=== PATIENT | female | born 1995 | race Caucasian/White ===

== ENCOUNTER → 2017-02-18 | Outpatient (CLI) | payer BC ==
[2017-02-18 17:37] LABS: CH 29.7; CHCM 34.8; HCT 32.9 % (34.0-46.0); HDW 2.66; HGB 11.1 gm/dL (11.4-16.0); MCH 28.9 pg (25.0-35.0); MCHC 33.8 g/dL (31.0-37.0); MCV 85.7 fL (80.0-100.0); Mean Platelet Volume 8.4; RBC 3.84 m/uL (3.80-5.40); RDW 13.7 % (11.5-15.5); WBC 6.4 k/uL (3.8-10.6)
[2017-02-18 17:42] LABS: Glucose 101 mg/dL (74-99); Non-African American GFR(MDRD) >60 (>60 ml/min/1.73 sqM)
[2017-02-18 18:31] LABS: Hepatitis B Surface Ag Index 0.04
[2017-02-19 01:10] LABS: Treponemal Ab Non-Reactive (Non-Reactive)
[2017-02-20 03:33] LABS: Toxoplasma Antibody (IgG) <3.0 IU/mL (<7.2)
== END | disposition home or self-care (01) ==
LOC: LABWHC1 17:01
PROVIDERS: ATTEND Obstetrics & Gynecology
DX: Z34.82 Encounter for supervision of other normal pregnancy, second trimester (principal)
CPT/HCPCS: 36415; 82565; 82947; 85027; 86762; 86777; 86778; 86780; 86850; 86900; 86901; 87340; 87390

== ENCOUNTER 2017-07-22 08:58 | Emergency (ER) | payer BC ==
[2017-07-22 09:11] VITALS: BP 116/84; PULSE 86; RESP 18; TEMP 98.3
--- NOTE | 2017-07-22 09:57 | ED ---
General Adult HPI - General Chief complaint: Eye Problems Stated complaint: Poss.pink eye/36 wks Time Seen by Provider: 07/22/17 09:29 Source: patient, RN notes reviewed Mode of arrival: ambulatory Limitations: no limitations - History of Present Illness Initial comments: 22-year-old female presents to the emergency department with a chief complaint of bilateral light sensitivity to ice. She states if she looks like she has pain. She states her doctor and the pain is gone. She states that she has some blurred vision with this. She states that she had some pinkeye over week and half ago but that completely cleared up and then today she woke up with these symptoms. She denies any fever chills any cough cold. She states she is not currently having any other symptoms at this time. She states she is also 36 weeks having some lower abdominal cramping. Patient denies any recent fever, chills, shortness of breath, chest pain, back pain, abdominal pain , nausea vomiting, numbness or tingling, dysuria or hematuria, constipation or diarrhea, headaches.or any other current symptoms. - Related Data Previous Rx's Medication Instructions Recorded prednisoLONE ACETATE 1% OPHTH 1 drops BOTH EYES Q4HR 2 Days ml 07/22/17 [Pred Forte 1%] Allergies Allergy/AdvReac Type Severity Reaction Status Date / Time No Known Allergies Allergy Verified 07/22/17 09:28 Review of Systems ROS Statement: Those systems with pertinent positive or pertinent negative responses have been documented in the HPI. ROS Other: All systems not noted in ROS Statement are negative. Past Medical History Past Medical History: No Reported History Additional Past Medical History / Comment(s): Obstetric history: First two pregnancies were spontaneous abortions. This is her third . She has had care with [facility] since 10 weeks gestation. A+, abs neg, Rub Imm, RPR NR, Hep B neg, HIV NR. normal 1hr GTT. GBS neg History of Any Multi-Drug Resistant Organisms: None Reported Past Surgical History: No Surgical Hx Reported Past Anesthesia/Blood Transfusion Reactions: Unable to Obtain Past Psychological History: Bipolar, Depression Smoking Status: Former smoker Past Alcohol Use History: None Reported Past Drug Use History: None Reported General Exam Limitations: no limitations General appearance: alert, in no apparent distress Head exam: Present: atraumatic, normocephalic, normal inspection Eye exam: Present: normal appearance, PERRL, EOMI, other (Patient has pain with pupil dilation and constriction. No pain in a dark room. Logan lamp examination shows no corneal uptake.). Absent: scleral icterus, conjunctival injection, periorbital swelling ENT exam: Present: normal exam, mucous membranes moist Neck exam: Present: normal inspection. Absent: tenderness, meningismus, lymphadenopathy Respiratory exam: Present: normal lung sounds bilaterally. Absent: respiratory distress, wheezes, rales, rhonchi, stridor Cardiovascular Exam: Present: regular rate, normal rhythm, normal heart sounds. Absent: systolic murmur, diastolic murmur, rubs, gallop, clicks Neurological exam: Present: alert, oriented X3 Psychiatric exam: Present: normal affect, normal mood Skin exam: Present: warm, dry, intact, normal color. Absent: rash Course Vital Signs 07/22/17 09:06 Temperature 98.3 F Pulse Rate 86 Respiratory 18 Rate Blood Pressure 116/84 O2 Sat by Pulse 98 Oximetry Medical Decision Making - Medical Decision Making 22-year-old female presents emergency department with what appears to be a iritis. This tenderness with patient on steroid drops to give her prescription. We will then sent her to mother baby due to her her cramping at 36 weeks . We discussed follow-up with the mash tub cooker operator and she is given their information. We discussed return parameters all questions. Patient states she understood and she is here this plan. She'll be discharged. Disposition Clinical Impression: Iritis of both eyes Disposition: HOME SELF-CARE Condition: Stable Instructions: Iritis (ED) Additional Instructions: Please use medication as discussed. Please follow up with family doctor if symptoms have not improved over the next two days. Please return to the emergency room if your symptoms increase or worsen or for any other concerns. If symptoms have not improved in 2 days he needs to see the eye doctor as discussed. Prescriptions: prednisoLONE ACETATE 1% OPHTH [Pred Forte 1%] 1 drops BOTH EYES Q4HR 2 Days ml Referrals: Edith Castanon DO [Primary Care Provider] - 1-2 days Kraig Britt MD [STAFF PHYSICIAN] - 1-2 days Time of Disposition: 09:56
== END 2017-07-22 10:07 | disposition home or self-care (01) ==
LOC: EC 08:58
DX: O99.89 Other specified diseases and conditions complicating pregnancy, childbirth and the puerperium (principal); H20.9 Unspecified iridocyclitis; R10.30 Lower abdominal pain, unspecified; Z87.891 Personal history of nicotine dependence; Z3A.36 36 weeks gestation of pregnancy
CPT/HCPCS: 59025; 99213; 99283

== ENCOUNTER 2017-07-22 10:15 | Outpatient (CLI) | payer BC ==
[2017-07-22 11:19] VITALS: BP 108/59; PULSE 75; RESP 15; TEMP 97.5
--- NOTE | 2017-07-23 19:34 | P.MSEPDOC ---
Presenting Problems - Arrival Data Date of Arrival on Unit: 07/22/17 Time of Arrival on Unit: 10:15 Mode of Transport: Ambulatory - Complaint OB-Reason for Admission/Chief Complaint: Pain Medical History - Information : 2 Para: 1 Term: 1 : 0 Abortions: Spontaneous or Elective: 0 Number of Living Children: 1 - Gestational Age Gestational Age by BATOOL (wks/days): 36 Weeks and 1 Days Review of Systems - Review of Systems Constitutional: No problems Breast: No problems ENT: Cough Cardiovascular: No problems Respiratory: No problems Gastrointestinal: No problems Genitourinary: No problems Musculoskeletal: No problems Neurological: No problems Skin: No problems Comment: pt has a dry cough x 4-5 days. pt diagnosed with pink eye in Er this and given script for drops Vital Signs - Temperature Temperature: 97.5 F Temperature Source: Oral - Pulse Brachial Pulse Rate: 75 Pulse Assessment Method: Automatic Cuff - Respirations Respiratory Rate: 15 Oxygen Delivery Method: Room Air O2 Sat by Pulse Oximetry: 100 - Blood Pressure Right Arm Sitting Blood Pressure: 108/59 Blood Pressure Mean: 75 Blood Pressure Source: Automatic Cuff Medical Screen Scoring (Pre) - Cervical Exam Dilation: Exam Deferred Effacement: Exam Deferred Membranes: Intact - Uterine Contractions Frequency: N/A Duration: N/A Intensity: N/A - Maternal Vital Signs Maternal Temperature: N/A Maternal Blood Pressure: N/A Signs of Preeclampsia: N/A Maternal Respirations: N/A - Pain Assessment Pain Location and Character: Abdomen Pain Scale Used: Numeric (1 - 10) Pain Intensity: 4 Pain Description: *Acute, Cramping Pain Frequency: Intermittent Pain Duration Units: Hours Pain Behavior: Vocalization Pain Aggravating Factors: Activity Pharmacological Interventions: PRN Medication Non-Pharmacological Interventions: Position/Reposition, Relaxation Technique - Maternal Trauma Maternal Trauma: N/A - Assessment Baseline FHR: 125 Heart Rate - NICHD Category: Category I (Normal) = 0 NST: Reactive Position: N/A Station: N/A - Total Score Total Score (Pre): 0 - Level of Risk Level of Risk: Low (0-5) Physician Notification (Pre) - Physician Notified Physician Notified Date: 07/22/17 Physician Notified Time: 10:50 Spoke With: Dr Max New Order Received: Yes - Notification Comment Comment: dc pt home and have her call in am for appt. no work today or tomorrow per t.o. Dr Max Medical Screen Scoring (Post) - Post Treatment Level of Risk Post Treatment Level of Risk: Low (0-5) Disposition - Disposition OB Disposition: Triage Discharge Date: 07/22/17 Discharge Time: 10:59 I agree with the RN Medical Screening Exam: Yes Risk & Benefit of care provided described in d/c instruction: Yes Diagnosis: FALSE LABOR BEFORE 37 COMPLETED WEEKS OF GEST, THIRD TRI
== END 2017-07-22 10:59 | disposition home or self-care (01) ==
LOC: FBPOP 10:15
PROVIDERS: ATTEND Obstetrics & Gynecology
DX: O47.03 False labor before 37 completed weeks of gestation, third trimester (principal); Z3A.36 36 weeks gestation of pregnancy
CPT/HCPCS: 59025; 99213

== ENCOUNTER 2017-08-14 16:47 | Outpatient (CLI) | payer BC ==
[2017-08-14 18:36] VITALS: BP 142/65; PULSE 92; RESP 16; TEMP 97.6
--- NOTE | 2017-08-27 17:44 | P.MSEPDOC ---
Presenting Problems - Arrival Data Date of Arrival on Unit: 08/14/17 Time of Arrival on Unit: 17:00 Mode of Transport: Ambulatory - Complaint OB-Reason for Admission/Chief Complaint: Decreased Movement Comment: from office. Medical History - Information : 4 Para: 1 Term: 1 : 0 Abortions: Spontaneous or Elective: 0 Number of Living Children: 1 - Gestational Age Gestational Age by BATOOL (wks/days): 39 Weeks and 3 Days Review of Systems - Review of Systems Constitutional: No problems Breast: No problems ENT: No problems Cardiovascular: No problems Respiratory: No problems Gastrointestinal: No problems Genitourinary: No problems Musculoskeletal: No problems Neurological: No problems Skin: No problems Vital Signs - Temperature Temperature: 97.6 F Temperature Source: Tympanic - Pulse Right Radial Pulse Rate: 92 Pulse Assessment Method: Automatic Cuff - Respirations Respiratory Rate: 16 Oxygen Delivery Method: Room Air - Blood Pressure Right Arm Blood Pressure: 142/65 Blood Pressure Mean: 90 Blood Pressure Source: Automatic Cuff Medical Screen Scoring (Pre) - Cervical Exam Dilation: Exam Deferred - Uterine Contractions Frequency: N/A - Maternal Vital Signs Maternal Temperature: N/A Maternal Blood Pressure: N/A Signs of Preeclampsia: N/A Maternal Respirations: N/A - Pain Assessment Pain Intensity: 0 - Maternal Trauma Maternal Trauma: N/A - Assessment Baseline FHR: 135 - Total Score Total Score (Pre): 0 - Level of Risk Level of Risk: Low (0-5) Physician Notification (Pre) - Physician Notified Physician Notified Date: 08/14/17 Physician Notified Time: 17:50 Physician/Practitioner Notifed:: wyatt Spoke With: wyatt New Order Received: Yes - Notification Comment Comment: sent from office per dr pepper. dr vazquez Disposition - Disposition OB Disposition: Discharge to home Discharge Date: 08/14/17 Discharge Time: 17:50 I agree with the RN Medical Screening Exam: Yes Risk & Benefit of care provided described in d/c instruction: Yes Diagnosis: DECREASED MOVEMENTS, THIRD TRIMESTER, UNSP
== END 2017-08-14 17:50 | disposition home or self-care (01) ==
LOC: FBPOP 16:47
PROVIDERS: ATTEND Obstetrics & Gynecology
DX: O36.8130 Decreased fetal movements, third trimester, not applicable or unspecified (principal); Z3A.39 39 weeks gestation of pregnancy
CPT/HCPCS: 59025; 99213

== ENCOUNTER 2017-08-19 05:59 | Inpatient (IN) | payer BC ==
[2017-08-19] MEDS ORDERED: CARBOPROST TROMETHAMINE 250 MCG/ML 1 ML AMP IM PRN (06:10)
[2017-08-19] MEDS ORDERED: OXYTOCIN 10 UNIT/ML 1 ML VIAL IM PRN (06:10)
[2017-08-19] MEDS ORDERED: OXYTOCIN 20 UNITS/1000 ML NS 1,000 ML IV SCH ×2 (06:10→20:00)
[2017-08-19] MEDS ORDERED: METHYLERGONOVINE 0.2 MG/ML 1 ML AMP IM PRN (06:10)
[2017-08-19] MEDS ORDERED: TERBUTALINE 1 MG/ML VIAL SQ PRN (06:10)
[2017-08-19] MEDS ORDERED: LIDOCAINE 1% (PF) 10 MG/ML (30 ML SDV) SQ PRN (06:10)
[2017-08-19 06:19] VITALS: BMI 33.7
[2017-08-19] MEDS: LACTATED RINGERS 1,000 ML IV SCH ×3 (06:26→16:33)
[2017-08-19 06:30] LABS: Basophils % (A) 0 %; Eosinophils # (A) 0.1 k/uL (0-0.7); Eosinophils % (A) 1 %; HCT 32.2 % (34.0-46.0); HGB 10.7 gm/dL (11.4-16.0); Lymphocytes # (A) 1.5 k/uL (1.0-4.8); Lymphocytes % (A) 22 %; MCH 27.9 pg (25.0-35.0); MCHC 33.2 g/dL (31.0-37.0); MCV 84.2 fL (80.0-100.0); Mean Platelet Volume 8.7; Monocytes # (A) 0.5 k/uL (0-1.0); Monocytes % (A) 7 %; Neutrophils # (A) 4.7 k/uL (1.3-7.7); Neutrophils % (A) 68 %; Platelet Count 173 k/uL (150-450); Poikilocytosis Slight; RBC 3.83 m/uL (3.80-5.40); RDW 13.3 % (11.5-15.5); WBC 6.9 k/uL (3.8-10.6)
[2017-08-19] MEDS: BUTORPHANOL 1 MG/ML 1 ML VIAL IV PRN ×2 (11:16→14:23)
[2017-08-19] MEDS ORDERED: fentaNYL (PF) 50 MCG/ML 5 ML AMP ONE (16:15)
[2017-08-19] MEDS ORDERED: BUPIVACAINE (PF) 0.25% 30 ML VIAL ONE (16:15)
[2017-08-19] MEDS ORDERED: SODIUM CHLORIDE 0.9% 100 ML BAG ONE (16:15)
--- NOTE | 2017-08-19 17:02 | P.HPOB ---
History of Present Illness H&P Date: 08/19/17 Chief Complaint: INduction of labor 22-year-old presents at 40 weeks and 1 day for induction of labor. Her cervix is 1-2 cm dilated, 70% effaced, and -2 station. She's not janeth. heart tones 130-135 with moderate variability and reactive. Review of Systems All systems: negative Constitutional: Denies chills, Denies fever Eyes: denies blurred vision, denies pain Ears, nose, mouth and throat: Denies headache, Denies sore throat Cardiovascular: Denies chest pain, Denies shortness of breath Respiratory: Denies cough Gastrointestinal: Denies abdominal pain, Denies diarrhea, Denies nausea, Denies vomiting Genitourinary: Denies dysuria, Denies hematuria Musculoskeletal: Denies myalgias Integumentary: Denies pruritus, Denies rash Neurological: Denies numbness, Denies weakness Psychiatric: Denies anxiety, Denies depression Endocrine: Denies fatigue, Denies weight change Past Medical History Past Medical History: No Reported History Additional Past Medical History / Comment(s): Obstetric history: First two pregnancies were spontaneous abortions. Her third was a vaginal delivery. She has had care with [facility] since 9 weeks gestation. A+, abs neg, Rub Imm, RPR NR, Hep B neg, HIV NR. normal 1hr GTT. GBS neg History of Any Multi-Drug Resistant Organisms: None Reported Past Surgical History: No Surgical Hx Reported Past Anesthesia/Blood Transfusion Reactions: No Reported Reaction Past Psychological History: No Psychological Hx Reported Smoking Status: Former smoker Past Alcohol Use History: None Reported Past Drug Use History: None Reported - Past Family History Mother Family Medical History: Diabetes Mellitus, Hypertension Medications and Allergies Allergies Allergy/AdvReac Type Severity Reaction Status Date / Time No Known Allergies Allergy Verified 08/19/17 06:10 Exam Osteopathic Statement: *. No significant issues noted on an osteopathic structural exam other than those noted in the History and Physical/Consult. - Vital Signs Vital signs: Vital Signs Temp Pulse Resp BP Pulse Ox 08/19/17 06:11 96.0 F L 84 17 117/71 98 Intake and Output 08/19/17 08/19/17 08/19/17 06:59 14:59 22:59 Other: Weight 89.358 kg Heart: Regular rate and rhythm Lungs: Clear to auscultation bilaterally Abdomen: Soft, nontender Extremities: Negative Homans sign Results Result Diagrams: 08/19/17 06:20 Abnormal Lab Results - Last 24 Hours (Table) 08/19/17 Range/Units 06:20 Hgb 10.7 L (11.4-16.0) gm/dL Hct 32.2 L (34.0-46.0) % Assessment and Plan (1) Normal labor Current Visit: Yes Status: Acute Code(s): O80 - ENCOUNTER FOR FULL-TERM UNCOMPLICATED DELIVERY; Z37.9 - OUTCOME OF DELIVERY, UNSPECIFIED SNOMED Code(s ): 21915280 Plan: 1. Admit to family place 2. Induction of labor with amniotomy and Pitocin 3. Anticipate normal vaginal delivery
[2017-08-19] MEDS ORDERED: BUPIVACAINE (PF) 0.25% 25 ML, fentaNYL (PF) 200 MCG in SODIUM CHLORIDE 0.9% 71 ML EPIDURAL ONE (17:19)
[2017-08-19] MEDS ORDERED: BENZOCAINE/MENTHOL SPRAY 1 GM/SPRAY AEROSOL TOPICAL PRN (19:49)
[2017-08-19] MEDS ORDERED: HYDROCORTISONE 2.5% RECTAL CREAM 30 GM TUBE RECTAL PRN (19:49)
[2017-08-19] MEDS ORDERED: Acetaminophen-Codeine 300-30mg TAB PO PRN ×2 (19:49)
[2017-08-19] MEDS ORDERED: WITCH HAZEL 1 EACH MED..PAD TOPICAL PRN (19:49)
[2017-08-19] MEDS ORDERED: LANOLIN CREAM 5 GM TUBE TOPICAL PRN (19:49)
[2017-08-19] MEDS ORDERED: diphenhydrAMINE 50 MG CAP PO PRN (19:49)
[2017-08-19] MEDS ORDERED: diphenhydrAMINE 25 MG CAP PO PRN (19:49)
[2017-08-19] MEDS ORDERED: SIMETHICONE 80 MG CHEWABLE PO PRN (19:49)
[2017-08-19] MEDS ORDERED: ACETAMINOPHEN TAB 325 MG TAB PO PRN (19:49)
[2017-08-19] MEDS ORDERED: ZOLPIDEM 5 MG TAB PO PRN (19:49)
[2017-08-19] MEDS ORDERED: diphenhydrAMINE 50 MG/ML 1 ML VIAL IVP PRN ×2 (19:49)
--- NOTE | 2017-08-19 19:53 | P.PROBDLV ---
Vaginal Delivery Note - . Vaginal Delivery Note: 22-year-old presents at 40 weeks and 1 day for induction of labor. Her cervix is 1 cm dilated, 70% effaced, -2 station. She is janeth irregularly. heart tones are 130-135 with moderate variability and reactive. Pitocin was started and amniotomy was performed at 7:50 AM, clear fluid noted. She progressed slowly throughout the day. When she was 3 cm dilated around 3:30 PM she got an epidural and was comfortable. Her cervix was completely dilated at 1927. She pushed, and delivered a viable female over intact perineum under epidural anesthesia at 1930. Head delivered straight OA, nuchal cord 1 easily reduced, anterior shoulder was delivered by gentle downward traction followed by posterior shoulder and rest of body. Nose and mouth bulb suctioned, cord clamped and cut, placed on mother's abdomen. Apgars 9, 9, weight 7 lbs. 9 oz. Placenta delivered spontaneously, intact with three-vessel cord. Vagina, cervix, and perineum were inspected. First-degree right vaginal tear was repaired with 3-0 Vicryl. Estimated blood loss 150 mL. Mother and baby in stable condition.
[2017-08-19] MEDS: SENNOSIDES-DOCUSATE SODIUM 1 EACH TAB PO SCH (21:07)
[2017-08-19] MEDS: IBUPROFEN 600 MG TAB PO PRN (21:09)
[2017-08-20] MEDS: SENNOSIDES-DOCUSATE SODIUM 1 EACH TAB PO SCH (07:19)
[2017-08-20] MEDS: IBUPROFEN 600 MG TAB PO PRN ×2 (07:32→13:32)
[2017-08-20] MEDS ORDERED: INFLUENZA VACCINE (6 MOS+) 60 MCG/0.5 ML SYRINGE IM ONE (13:22)
--- NOTE | 2017-08-20 13:28 | P.DS ---
Providers Date of admission: 08/19/17 05:59 Expected date of discharge: 08/20/17 Attending physician: Mary Max Primary care physician: Stated None - Discharge Diagnosis(es) (1) Normal labor Current Visit: Yes Status: Resolved (2) Normal vaginal delivery Current Visit: No Status: Acute Hospital Course: Pt presented for induction of labor. She underwent a normal vaginal delivery and had an uncomplicated pp course. she will be discharged home PPD #1 in stable condition to follow up with me in 6 weeks. Plan - Discharge Summary New Discharge Prescriptions: New Ibuprofen [Motrin] 600 mg PO Q6HR PRN #30 tab PRN Reason: Mild Pain Or Fever >= 100.5 Discharge Medication List Ibuprofen [Motrin] 600 mg PO Q6HR PRN #30 tab 08/20/17 [Rx] Follow up Appointment(s)/Referral(s): Mary Max DO [Doctor of Osteopathic Medicine] - 6 Weeks Discharge Disposition: HOME SELF-CARE
[2017-08-20 15:59] VITALS: BP 136/70; PULSE 63; RESP 18; TEMP 97.3
== END 2017-08-20 20:00 | disposition home or self-care (01) | DRG 775 ==
LOC: 4FBP 05:59
PROVIDERS: ADMIT Obstetrics & Gynecology; ATTEND Obstetrics & Gynecology
PROC: 10907ZC Drainage of Amniotic Fluid, Therapeutic from Products of Conception, Via Natural or Artificial Opening (ICD-10-PCS; principal; 2017-08-19)
PROC: 10E0XZZ Delivery of Products of Conception, External Approach (ICD-10-PCS; 2017-08-19)
PROC: 0HQ9XZZ Repair Perineum Skin, External Approach (ICD-10-PCS; 2017-08-19)
PROC: 00HU33Z Insertion of Infusion Device into Spinal Canal, Percutaneous Approach (ICD-10-PCS; 2017-08-19)
PROC: 3E0R3NZ Introduction of Analgesics, Hypnotics, Sedatives into Spinal Canal, Percutaneous Approach (ICD-10-PCS; 2017-08-19)
PROC: 3E033VJ Introduction of Other Hormone into Peripheral Vein, Percutaneous Approach (ICD-10-PCS; 2017-08-19)
DX: O69.81X0 Labor and delivery complicated by cord around neck, without compression, not applicable or unspecified (principal); O70.0 First degree perineal laceration during delivery; Z37.0 Single live birth; Z3A.40 40 weeks gestation of pregnancy; Z87.891 Personal history of nicotine dependence; Z82.49 Family history of ischemic heart disease and other diseases of the circulatory system; Z83.3 Family history of diabetes mellitus
CPT/HCPCS: 85025; 88307; 90686

== ENCOUNTER 2018-06-08 13:06 | Emergency (ER) | payer BC ==
[2018-06-08 13:37] VITALS: RESP 18
[2018-06-08 14:28] LABS: Basophils % (A) 0 %; Eosinophils % (A) 0 %; HCT 40.1 % (34.0-46.0); HGB 13.1 gm/dL (11.4-16.0); Lymphocytes # (A) 0.5 k/uL (1.0-4.8); Lymphocytes % (A) 5 %; MCH 26.8 pg (25.0-35.0); MCHC 32.6 g/dL (31.0-37.0); MCV 82.2 fL (80.0-100.0); Mean Platelet Volume 6.7; Monocytes # (A) 0.4 k/uL (0-1.0); Monocytes % (A) 4 %; Neutrophils % (A) 90 %; Platelet Count 263 k/uL (150-450); RBC 4.88 m/uL (3.80-5.40); RDW 12.5 % (11.5-15.5)
[2018-06-08 14:43] LABS: ALT 14 U/L (9-52); AST 24 U/L (14-36); Albumin 5.1 g/dL (3.5-5.0); Alkaline Phosphatase 70 U/L (38-126); Amylase 48 U/L (30-110); Anion Gap 12 mmol/L; Blood Urea Nitrogen 19 mg/dL (7-17); Calcium 10.3 mg/dL (8.4-10.2); Carbon Dioxide 22 mmol/L (22-30); Chloride 107 mmol/L (98-107); Glucose 104 mg/dL (74-99); Lipase 37 U/L (23-300); Potassium 5.1 mmol/L (3.5-5.1); Sodium 141 mmol/L (137-145); Total Protein 8.2 g/dL (6.3-8.2)
[2018-06-08] MEDS ORDERED: SODIUM CHLORIDE 0.9% 1,000 ML IV ONE (15:03)
--- NOTE | 2018-06-08 15:39 | ED ---
Nausea/Vomiting/Diarrhea HPI - General Chief complaint: Nausea/Vomiting/Diarrhea Stated complaint: NVD Time Seen by Provider: 06/08/18 15:02 Source: patient Mode of arrival: ambulatory Limitations: no limitations - History of Present Illness Initial comments: 23-year-old female no past smoke was of present today for chief complaint of nausea, vomiting and diarrhea times one day. Patient states that she's had nausea and vomiting and diarrhea since this morning. Patient states that she has had multiple episodes of watery bowel movements as well as 3 episodes of emesis. Patient states the last episode of emesis she notes a very small amount of blood in it. Patient denies vomiting large amounts of blood. Patient states that her boyfriend has had similar symptoms a few days prior. Patient admits to abdominal cramping but states it is not pain, more of a discomfort. Patient denies . Patient denies any urgency, frequency, dysuria, back pain, vaginal bleeding or discharge. Upon arrival patient is well -appearing. Vital signs within except for limits. Patient appears nontoxic. Remainder ROS negative, patient denies any recent fever, chills, shortness of breath, chest pain, numbness or tingling, headaches or visual changes, or any other complaints. - Related Data Previous Rx's Medication Instructions Recorded Ondansetron HCl [Zofran] 4 mg PO Q6H PRN 2 Days #6 tablet 06/08/18 Allergies Allergy/AdvReac Type Severity Reaction Status Date / Time No Known Allergies Allergy Verified 06/08/18 13:37 Review of Systems ROS Statement: Those systems with pertinent positive or pertinent negative responses have been documented in the HPI. ROS Other: All systems not noted in ROS Statement are negative. Constitutional: Denies: fever, chills, night sweats ENT: Denies: ear pain, throat pain Respiratory: Denies: cough, dyspnea, wheezes, hemoptysis, stridor Cardiovascular: Denies: chest pain, palpitations, dyspnea on exertion Gastrointestinal: Reports: nausea, vomiting, diarrhea. Denies: abdominal pain, constipation, hematemesis, melena, hematochezia Genitourinary: Denies: urgency, dysuria, frequency, hematuria, discharge, abnormal menses Musculoskeletal: Denies: back pain Past Medical History Past Medical History: No Reported History Additional Past Medical History / Comment(s): Obstetric history: First two pregnancies were spontaneous abortions. Her third was a vaginal delivery. She has had care with me since 9 weeks gestation. A+, abs neg, Rub Imm, RPR NR, Hep B neg, HIV NR. normal 1hr GTT. GBS neg History of Any Multi-Drug Resistant Organisms: None Reported Past Surgical History: No Surgical Hx Reported Past Anesthesia/Blood Transfusion Reactions: No Reported Reaction Past Psychological History: No Psychological Hx Reported Smoking Status: Former smoker Past Alcohol Use History: None Reported Past Drug Use History: None Reported - Past Family History Mother Family Medical History: Diabetes Mellitus, Hypertension General Exam - General Exam Comments Initial Comments: General: The patient is awake and alert, in no distress, and does not appear acutely ill. Eye: Pupils are equal, round and reactive to light, extra-ocular movements are intact. No nystagmus. There is normal conjunctiva bilaterally. No signs of icterus. Ears, nose, mouth and throat: There are moist mucous membranes and no oral lesions. Neck: The neck is supple, there is no tenderness or JVD. Cardiovascular: There is a regular rate and rhythm. No murmur, rub or gallop is appreciated. No crepitus to the anterior chest wall. Respiratory: Lungs are clear to auscultation, respirations are non-labored, breath sounds are equal. No wheezes, stridor, rales, or rhonchi. Gastrointestinal: No noted diaphoresis, jaundice, pallor, protecting postures or squirming. Symmetrical pigmentation of abdomen without signs of inflammation. noted striae. Umbilicus mildline, inverted without swelling. No dilated veins. Abdomen contour obese, no noted abdominal distention. No visible masses. No peristalsis, aortic pulsations, or ventral hernia. Bowel sounds audible in all 4 quadrants, unremarkable. No friction rubs or venous hums. No epigastic, hepatic or abdominal bruits. No tenderness to light or deep palpation. Liver edge, not palpable. Spleen edge, right and left kidney not palpable. Superior bladder margin non-tender. Special Testing: Negative [place], [place], [place], [place], cutaneous hyperesthesia. Iliopsoas and obturator tests negative bilaterally. Negative Heel Jar test/ josé miguel sign. No CVA tenderness. Digital rectal exam deferred. Negative benavides turners or cullens sign Musculoskeletal: Normal ROM, no tenderness. Strength 5/5. Sensation intact. Pulses equal bilaterally 2+. Neurological: A&O x 3. CN II-XII intact, There are no obvious motor or sensory deficits. Coordination appears grossly intact. Speech is normal. Skin: Skin is warm and dry and no rashes or lesions are noted. Psychiatric: Cooperative, appropriate mood & affect, normal judgment. Limitations: no limitations Course Vital Signs 06/08/18 06/08/18 13:34 17:28 Temperature 98.5 F 98.6 F Pulse Rate 94 85 Respiratory 18 18 Rate Blood Pressure 109/58 128/60 O2 Sat by Pulse 99 98 Oximetry Medical Decision Making - Medical Decision Making Abdominal exam benign, no pain rigidity or guarding. Patient has history of sick contact. No crepitus patient anterior chest. Chest x-ray within normal limits. I feel patient one episode of emesis due to superficial injury of the esophagus from emesis. Patient is stable, vital signs within normal limits. Urinalysis revealed findings concerning for early urinary tract infection however patient denies any urinary symptoms, we will hold treatment given she has a symptomatic and wait for urine culture. Culture pending. Patient given IV fluids for rehydration. No electrolyte derangements. Urine negative. At this time feel patient has a viral syndrome and is stable for discharge. I discussed the case with Dr. Alvarez who agrees impression and plan. Patient is discharged in stable condition with primary care follow-up next 1- 2 days. All return parameters were discussed at length patient verbalizes understanding. Patient discharged in stable condition. - Lab Data Result diagrams: 06/08/18 13:58 06/08/18 13:58 Lab Results 06/08/18 06/08/18 06/08/18 Range/Units 13:58 13:58 13:58 WBC 10.0 (3.8-10.6) k/uL RBC 4.88 (3.80-5.40) m/uL Hgb 13.1 (11.4-16.0) gm/dL Hct 40.1 (34.0-46.0) % MCV 82.2 (80.0-100.0) fL MCH 26.8 (25.0-35.0) pg MCHC 32.6 (31.0-37.0) g/dL RDW 12.5 (11.5-15.5) % Plt Count 263 (150-450) k/uL Neutrophils % 90 % Lymphocytes % 5 % Monocytes % 4 % Eosinophils % 0 % Basophils % 0 % Neutrophils # 9.0 H (1.3-7.7) k/uL Lymphocytes # 0.5 L (1.0-4.8) k/uL Monocytes # 0.4 (0-1.0) k/uL Eosinophils # 0.0 (0-0.7) k/uL Basophils # 0.0 (0-0.2) k/uL Sodium 141 (137-145) mmol/L Potassium 5.1 (3.5-5.1) mmol/L Chloride 107 (98-107) mmol/L Carbon Dioxide 22 (22-30) mmol/L Anion Gap 12 mmol/L BUN 19 H (7-17) mg/dL Creatinine 0.62 (0.52-1.04) mg/dL Est GFR (CKD-EPI)AfAm >90 (>60 ml/min/1.73 sqM) Est GFR (CKD-EPI)NonAf >90 (>60 ml/min/1.73 sqM) Glucose 104 H (74-99) mg/dL Calcium 10.3 H (8.4-10.2) mg/dL Total Bilirubin 1.0 (0.2-1.3) mg/dL AST 24 (14-36) U/L ALT 14 (9-52) U/L Alkaline Phosphatase 70 (38-126) U/L Total Protein 8.2 (6.3-8.2) g/dL Albumin 5.1 H (3.5-5.0) g/dL Amylase 48 (30-110) U/L Lipase 37 (23-300) U/L Urine Color Yellow Urine Appearance Cloudy H (Clear) Urine pH 5.5 (5.0-8.0) Ur Specific [place] 1.025 (1.001-1.035) Urine Protein Trace H (Negative) Urine Glucose (UA) Negative (Negative) Urine Ketones Negative (Negative) Urine Blood Small H (Negative) Urine Nitrite Negative (Negative) Urine Bilirubin Negative (Negative) Urine Urobilinogen <2.0 (<2.0) mg/dL Ur Leukocyte Esterase Small H (Negative) Urine RBC 6 H (0-5) /hpf Urine WBC 4 (0-5) /hpf Ur Squamous Epith Cells 10 H (0-4) /hpf Urine Bacteria Occasional H (None) /hpf Urine Mucus Many H (None) /hpf Urine HCG, Qual (Not Detectd) 06/08/18 Range/Units 13:58 WBC (3.8-10.6) k/uL RBC (3.80-5.40) m/uL Hgb (11.4-16.0) gm/dL Hct (34.0-46.0) % MCV (80.0-100.0) fL MCH (25.0-35.0) pg MCHC (31.0-37.0) g/dL RDW (11.5-15.5) % Plt Count (150-450) k/uL Neutrophils % % Lymphocytes % % Monocytes % % Eosinophils % % Basophils % % Neutrophils # (1.3-7.7) k/uL Lymphocytes # (1.0-4.8) k/uL Monocytes # (0-1.0) k/uL Eosinophils # (0-0.7) k/uL Basophils # (0-0.2) k/uL Sodium (137-145) mmol/L Potassium (3.5-5.1) mmol/L Chloride (98-107) mmol/L Carbon Dioxide (22-30) mmol/L Anion Gap mmol/L BUN (7-17) mg/dL Creatinine (0.52-1.04) mg/dL Est GFR (CKD-EPI)AfAm (>60 ml/min/1.73 sqM) Est GFR (CKD-EPI)NonAf (>60 ml/min/1.73 sqM) Glucose (74-99) mg/dL Calcium (8.4-10.2) mg/dL Total Bilirubin (0.2-1.3) mg/dL AST (14-36) U/L ALT (9-52) U/L Alkaline Phosphatase (38-126) U/L Total Protein (6.3-8.2) g/dL Albumin (3.5-5.0) g/dL Amylase (30-110) U/L Lipase (23-300) U/L Urine Color Urine Appearance (Clear) Urine pH (5.0-8.0) Ur Specific [place] (1.001-1.035) Urine Protein (Negative) Urine Glucose (UA) (Negative) Urine Ketones (Negative) Urine Blood (Negative) Urine Nitrite (Negative) Urine Bilirubin (Negative) Urine Urobilinogen (<2.0) mg/dL Ur Leukocyte Esterase (Negative) Urine RBC (0-5) /hpf Urine WBC (0-5) /hpf Ur Squamous Epith Cells (0-4) /hpf Urine Bacteria (None) /hpf Urine Mucus (None) /hpf Urine HCG, Qual Not Detected (Not Detectd) Disposition Clinical Impression: Nausea vomiting and diarrhea Disposition: HOME SELF-CARE Condition: Good Instructions: Acute Nausea and Vomiting (ED), Acute Diarrhea (ED) Additional Instructions: Please use medication as discussed. Please follow-up with family doctor in the next 2 days.. Please return to emergency room if the symptoms increase or worsen or for any other concerns, as discussed. Prescriptions: Ondansetron HCl [Zofran] 4 mg PO Q6H PRN 2 Days #6 tablet PRN Reason: Nausea Is patient prescribed a controlled substance at d/c from ED?: No Referrals: None,Stated [Primary Care Provider] - 1-2 days [facility] Horacio medina [NON-STAFF] - 1-2 days Time of Disposition: 15:39
[2018-06-08 15:56] LABS: Appearance,Urine Cloudy (Clear); Bacteria,Urine Occasional /hpf; Bilirubin,Urine Negative (Negative); Blood,Urine Small (Negative); Color,Urine Yellow; Glucose,Urine (UA) Negative (Negative); Ketones,Urine Negative (Negative); Leukocyte Esterase,Urine Small (Negative); Mucus,Urine Many /hpf; Nitrite,Urine Negative (Negative); PH, Urine 5.5 (5.0-8.0); Protein,Urine Trace (Negative); RBC,Urine 6 /hpf (0-5); Specific Gravity,Urine 1.025 (1.001-1.035); Squamous Epithelial Cell,Urine 10 /hpf (0-4); Urobilinogen,Urine <2.0 mg/dL (<2.0); WBC,Urine 4 /hpf (0-5)
--- NOTE | 2018-06-08 15:59 | XR ---
EXAMINATION TYPE: XR chest 2V DATE OF EXAM: 06/08/2018 COMPARISON: 12/11/2015 TECHNIQUE: PA and lateral views submitted. HISTORY: Pain FINDINGS: The lungs are clear and there is no pneumothorax, pleural effusion, or focal pneumonia. IMPRESSION: 1. No acute process.
[2018-06-08 17:29] VITALS: BP 128/60; PULSE 85; TEMP 98.6
== END 2018-06-08 17:29 | disposition home or self-care (01) ==
LOC: EC 13:06
DX: S10.10XA Unspecified superficial injuries of throat, initial encounter (principal); R11.2 Nausea with vomiting, unspecified; R19.7 Diarrhea, unspecified; Z32.02 Encounter for pregnancy test, result negative; Z87.891 Personal history of nicotine dependence
CPT/HCPCS: 36415; 71046; 80053; 81001; 81025; 82150; 83690; 85025; 96360; 96361; 99284

== ENCOUNTER → 2020-06-08 | Outpatient (CLI) | payer BC | END | disposition home or self-care (01) | LOC: LABWHC1 12:20 | PROVIDERS: ATTEND Emergency Medicine | DX: Z20.828 Contact with and (suspected) exposure to other viral communicable diseases (principal) | CPT/HCPCS: U0003; C9803 ==

== ENCOUNTER 2022-03-19 09:45 | Emergency (ER) | payer BC ==
[2022-03-19 09:54] VITALS: BP 111/69; PULSE 63; RESP 20; TEMP 98
[2022-03-19] MEDS ORDERED: ONDANSETRON 4 MG/2 ML VIAL IVP STA (11:11)
[2022-03-19] MEDS ORDERED: SODIUM CHLORIDE 0.9% 500 ML 500 ML IV STA (11:11)
--- NOTE | 2022-03-19 11:15 | ED ---
General Adult HPI - General Chief complaint: Abdominal Pain Stated complaint: 7 wks preg, nausea Time Seen by Provider: 03/19/22 11:04 Source: patient, family, RN notes reviewed, old records reviewed Mode of arrival: ambulatory Limitations: no limitations - History of Present Illness Initial comments: This is a well-appearing 27-year-old female that presents to the emergency room with 3 days of epigastric abdominal pain with nausea. No vomiting, no diarrhea. Patient states she went to urgent care yesterday as she is unable to sleep or get comfortable. They did test her for coronavirus which was negative. States that she has been drinking water to stay hydrated. Patient denies any vaginal bleeding, no dysuria and no vaginal discharge. She states that she just feels very weak and unable to go to work. -: days(s) (3) Location: abdomen (Epigastric) Severity scale (1-10): 6 Quality: constant Consistency: constant Improves with: none Associated Symptoms: malaise, nausea/vomiting (No vomiting), other (Unable to sleep) Treatments Prior to Arrival: other (Urgent care yesterday, coronavirus negative) - Related Data Previous Rx's Medication Instructions Recorded ondansetron HCL [Zofran] 4 mg PO Q6H PRN 2 Days #6 tablet 06/08/18 Cephalexin [Keflex] 500 mg PO Q8HR 5 Days #15 cap 03/19/22 Allergies Allergy/AdvReac Type Severity Reaction Status Date / Time No Known Allergies Allergy Verified 03/19/22 09:54 Patient : Yes Review of Systems ROS Statement: Those systems with pertinent positive or pertinent negative responses have been documented in the HPI. ROS Other: All systems not noted in ROS Statement are negative. Past Medical History Past Medical History: No Reported History Additional Past Medical History / Comment(s): Obstetric history: First two pregnancies were spontaneous abortions. Her third was a vaginal delivery. She has had care with me since 9 weeks gestation. A+, abs neg, Rub Imm, RPR NR, Hep B neg, HIV NR. normal 1hr GTT. GBS neg History of Any Multi-Drug Resistant Organisms: None Reported Past Surgical History: No Surgical Hx Reported Past Anesthesia/Blood Transfusion Reactions: No Reported Reaction Past Psychological History: No Psychological Hx Reported Smoking Status: Never smoker Past Alcohol Use History: None Reported Past Drug Use History: None Reported - Past Family History Mother Family Medical History: Diabetes Mellitus, Hypertension General Exam Limitations: no limitations General appearance: alert, in no apparent distress Head exam: Present: atraumatic Eye exam: Present: normal appearance. Absent: scleral icterus, conjunctival injection, periorbital swelling Neck exam: Absent: tenderness, meningismus Respiratory exam: Present: normal lung sounds bilaterally. Absent: respiratory distress, wheezes, rales, rhonchi, stridor, chest wall tenderness, accessory muscle use Cardiovascular Exam: Present: regular rate, normal heart sounds GI/Abdominal exam: Present: soft. Absent: distended, tenderness, guarding, rigid Extremities exam: Present: normal capillary refill. Absent: pedal edema Back exam: Present: normal inspection, full ROM. Absent: tenderness, CVA tenderness (R), CVA tenderness (L), rash noted Neurological exam: Present: alert, oriented X3 Psychiatric exam: Present: normal affect, normal mood Skin exam: Present: warm, dry, intact, normal color. Absent: cyanosis, diaphoretic, petechiae, pallor Course Vital Signs 03/19/22 09:52 Temperature 98 F Pulse Rate 63 Respiratory 20 Rate Blood Pressure 111/69 O2 Sat by Pulse 98 Oximetry Medical Decision Making - Medical Decision Making Patient presents with nausea and epigastric pain for 3 days with generalized weakness. She states that she was at [facility] last week and had an ultrasound showing a viable IUP. She denies any vaginal bleeding, discharge or pelvic pain. Historical blood type is A+. She has an appointment in March with Dr. Max for her first BEFORE SCHOOL visit. There is no evidence of leukocytosis. Electrolytes are unremarkable. Urine is cloudy with moderate bacteria no nitrites. She will be treated with Keflex. Directed to follow up with her primary care doctor this week. Return to the emergency room with pain or concerning symptoms. Dr. Dorado at bedside with ultrasound sees viable IUP, unable to determine heart rate but there is heart activity. - Lab Data Result diagrams: 03/19/22 11:29 03/19/22 11:29 Lab Results 03/19/22 03/19/22 03/19/22 Range/Units 11:29 11:29 11:37 WBC 5.6 (3.8-10.6) k/uL RBC 4.60 (3.80-5.40) m/uL Hgb 13.1 (11.4-16.0) gm/dL Hct 38.4 (34.0-46.0) % MCV 83.5 (80.0-100.0) fL MCH 28.5 (25.0-35.0) pg MCHC 34.2 (31.0-37.0) g/dL RDW 12.3 (11.5-15.5) % Plt Count 209 (150-450) k/uL MPV 8.1 Neutrophils % 69 % Lymphocytes % 24 % Monocytes % 5 % Eosinophils % 1 % Basophils % 0 % Neutrophils # 3.8 (1.3-7.7) k/uL Lymphocytes # 1.3 (1.0-4.8) k/uL Monocytes # 0.3 (0-1.0) k/uL Eosinophils # 0.0 (0-0.7) k/uL Basophils # 0.0 (0-0.2) k/uL Sodium 135 L (137-145) mmol/L Potassium 4.1 (3.5-5.1) mmol/L Chloride 99 (98-107) mmol/L Carbon Dioxide 22 (22-30) mmol/L Anion Gap 14 mmol/L BUN 7 (7-17) mg/dL Creatinine 0.60 (0.52-1.04) mg/dL Est GFR (CKD-EPI)AfAm >90 (>60 ml/min/1.73 sqM) Est GFR (CKD-EPI)NonAf >90 (>60 ml/min/1.73 sqM) Glucose 93 (74-99) mg/dL Calcium 9.6 (8.4-10.2) mg/dL Total Bilirubin 0.7 (0.2-1.3) mg/dL AST 26 (14-36) U/L ALT 30 (4-34) U/L Alkaline Phosphatase 71 (38-126) U/L Total Protein 7.2 (6.3-8.2) g/dL Albumin 4.7 (3.5-5.0) g/dL Amylase 51 (30-110) U/L Lipase 42 (23-300) U/L Urine Color Yellow Urine Appearance Cloudy H (Clear) Urine pH 6.0 (5.0-8.0) Ur Specific [place] 1.012 (1.001-1.035) Urine Protein Negative (Negative) Urine Glucose (UA) Negative (Negative) Urine Ketones Negative (Negative) Urine Blood Negative (Negative) Urine Nitrite Negative (Negative) Urine Bilirubin Negative (Negative) Urine Urobilinogen <2.0 (<2.0) mg/dL Ur Leukocyte Esterase Large H (Negative) Urine RBC <1 (0-5) /hpf Urine WBC 2 (0-5) /hpf Ur Squamous Epith Cells 7 H (0-4) /hpf Urine Bacteria Moderate H (None) /hpf Urine Mucus Few H (None) /hpf Urine HCG, Qual (Not Detectd) 03/19/22 Range/Units 11:37 WBC (3.8-10.6) k/uL RBC (3.80-5.40) m/uL Hgb (11.4-16.0) gm/dL Hct (34.0-46.0) % MCV (80.0-100.0) fL MCH (25.0-35.0) pg MCHC (31.0-37.0) g/dL RDW (11.5-15.5) % Plt Count (150-450) k/uL MPV Neutrophils % % Lymphocytes % % Monocytes % % Eosinophils % % Basophils % % Neutrophils # (1.3-7.7) k/uL Lymphocytes # (1.0-4.8) k/uL Monocytes # (0-1.0) k/uL Eosinophils # (0-0.7) k/uL Basophils # (0-0.2) k/uL Sodium (137-145) mmol/L Potassium (3.5-5.1) mmol/L Chloride (98-107) mmol/L Carbon Dioxide (22-30) mmol/L Anion Gap mmol/L BUN (7-17) mg/dL Creatinine (0.52-1.04) mg/dL Est GFR (CKD-EPI)AfAm (>60 ml/min/1.73 sqM) Est GFR (CKD-EPI)NonAf (>60 ml/min/1.73 sqM) Glucose (74-99) mg/dL Calcium (8.4-10.2) mg/dL Total Bilirubin (0.2-1.3) mg/dL AST (14-36) U/L ALT (4-34) U/L Alkaline Phosphatase (38-126) U/L Total Protein (6.3-8.2) g/dL Albumin (3.5-5.0) g/dL Amylase (30-110) U/L Lipase (23-300) U/L Urine Color Urine Appearance (Clear) Urine pH (5.0-8.0) Ur Specific [place] (1.001-1.035) Urine Protein (Negative) Urine Glucose (UA) (Negative) Urine Ketones (Negative) Urine Blood (Negative) Urine Nitrite (Negative) Urine Bilirubin (Negative) Urine Urobilinogen (<2.0) mg/dL Ur Leukocyte Esterase (Negative) Urine RBC (0-5) /hpf Urine WBC (0-5) /hpf Ur Squamous Epith Cells (0-4) /hpf Urine Bacteria (None) /hpf Urine Mucus (None) /hpf Urine HCG, Qual Detected (Not Detectd) Disposition Clinical Impression: Asymptomatic bacteriuria during Disposition: HOME SELF-CARE Condition: Good Instructions (If sedation given, give patient instructions): Urinary Tract Infection in (ED) Additional Instructions: Increase your fluid intake. Take antibiotics as prescribed. Follow-up with the primary care doctor this week. Return to the emergency room with any new or concerning symptoms including pelvic pain, vaginal bleeding or persistent nausea vomiting. Prescriptions: Cephalexin [Keflex] 500 mg PO Q8HR 5 Days #15 cap Is patient prescribed a controlled substance at d/c from ED?: No Referrals: None,Stated [Primary Care Provider] - 1-2 days Time of Disposition: 13:00
[2022-03-19 11:37] LABS: Basophils % (A) 0 %; Eosinophils % (A) 1 %; HCT 38.4 % (34.0-46.0); HGB 13.1 gm/dL (11.4-16.0); Lymphocytes # (A) 1.3 k/uL (1.0-4.8); Lymphocytes % (A) 24 %; MCH 28.5 pg (25.0-35.0); MCHC 34.2 g/dL (31.0-37.0); MCV 83.5 fL (80.0-100.0); Mean Platelet Volume 8.1; Monocytes # (A) 0.3 k/uL (0-1.0); Monocytes % (A) 5 %; Neutrophils # (A) 3.8 k/uL (1.3-7.7); Neutrophils % (A) 69 %; Platelet Count 209 k/uL (150-450); RDW 12.3 % (11.5-15.5); WBC 5.6 k/uL (3.8-10.6)
[2022-03-19 11:51] LABS: ALT 30 U/L (4-34); AST 26 U/L (14-36); African American GFR (CKD) >90 (>60 ml/min/1.73 sqM); Albumin 4.7 g/dL (3.5-5.0); Alkaline Phosphatase 71 U/L (38-126); Amylase 51 U/L (30-110); Anion Gap 14 mmol/L; Blood Urea Nitrogen 7 mg/dL (7-17); Calcium 9.6 mg/dL (8.4-10.2); Carbon Dioxide 22 mmol/L (22-30); Chloride 99 mmol/L (98-107); Glucose 93 mg/dL (74-99); Lipase 42 U/L (23-300); Non-African American GFR(CKD) >90 (>60 ml/min/1.73 sqM); Potassium 4.1 mmol/L (3.5-5.1); Sodium 135 mmol/L (137-145); Total Bilirubin 0.7 mg/dL (0.2-1.3); Total Protein 7.2 g/dL (6.3-8.2)
[2022-03-19 12:36] LABS: Appearance,Urine Cloudy (Clear); Bacteria,Urine Moderate /hpf; Bilirubin,Urine Negative (Negative); Blood,Urine Negative (Negative); Color,Urine Yellow; Glucose,Urine (UA) Negative (Negative); Ketones,Urine Negative (Negative); Leukocyte Esterase,Urine Large (Negative); Mucus,Urine Few /hpf; Nitrite,Urine Negative (Negative); Protein,Urine Negative (Negative); RBC,Urine <1 /hpf (0-5); Specific Gravity,Urine 1.012 (1.001-1.035); Squamous Epithelial Cell,Urine 7 /hpf (0-4); Urobilinogen,Urine <2.0 mg/dL (<2.0); WBC,Urine 2 /hpf (0-5)
[2022-03-19] MEDS ORDERED: CEPHALEXIN 500 MG CAP PO STA (12:43)
== END 2022-03-19 13:34 | disposition home or self-care (01) ==
LOC: EC 09:45
DX: O23.41 Unspecified infection of urinary tract in pregnancy, first trimester (principal)
CPT/HCPCS: 36415; 80053; 82150; 83690; 85025; 81001; 81025; 99283; 96374; 96361; J2405

== ENCOUNTER → 2022-07-22 | Outpatient (CLI) | payer BC ==
[2022-07-23 10:13] LABS: HGB 10.5 g/dL (12.0-15.0); MCH 28.1 pg (27.0-32.0); MCHC 31.8 g/dL (32.0-37.0); MCV 88.2 fL (80.0-97.0); Mean Platelet Volume 11.1 fL (9.5-12.2); NRBC Per 100 WBC 0 /100 WBCS (0.0-0.0); Platelet Count 175 X 10*3/uL (140-440); RBC 3.74 X 10*6/uL (4.10-5.20); RDW 13.1 % (11.5-14.5); WBC 8.81 X 10*3/uL (4.50-10.00)
== END | disposition home or self-care (01) ==
LOC: LABWHC1 14:54
PROVIDERS: ATTEND Obstetrics & Gynecology
DX: Z34.82 Encounter for supervision of other normal pregnancy, second trimester (principal); Z3A.00 Weeks of gestation of pregnancy not specified
CPT/HCPCS: 36415; 82950; 85027

== ENCOUNTER 2022-11-07 01:15 | Outpatient (CLI) | payer BC ==
[2022-11-07 03:15] VITALS: BP 126/80; PULSE 83; RESP 18; TEMP 97.9
--- NOTE | 2022-11-07 11:07 | P.MSEPDOC ---
Presenting Problems - Arrival Data Date of Arrival on Unit: 11/07/22 Time of Arrival on Unit: 01:15 Mode of Transport: Wheelchair - Complaint OB-Reason for Admission/Chief Complaint: Possible Onset of Labor, Rule Out SROM Comment: Patient presents to triage with complaints of contractions, rating pain at 6/10 during contractions. Patient unsure of leaking fluid, patient states it may possibly be urine. Medical History - Information : 5 Para: 2 Term: 2 : 2 Abortions: Spontaneous or Elective: 2 Number of Living Children: 2 - Gestational Age Gestational Age by BATOOL (wks/days): 40 Weeks and 2 Days Review of Systems - Review of Systems Constitutional: No problems Breast: No problems ENT: No problems Cardiovascular: No problems Respiratory: No problems Gastrointestinal: No problems Genitourinary: No problems Musculoskeletal: No problems Neurological: No problems Skin: No problems Vital Signs - Temperature Temperature: 97.9 F Temperature Source: Temporal Artery Scan - Pulse Pulse Oximetery Pulse Rate: 83 Pulse Assessment Method: Pulse Oximetry - Respirations Respiratory Rate: 18 Oxygen Delivery Method: Room Air O2 Sat by Pulse Oximetry: 96 - Blood Pressure Right Arm Blood Pressure: 126/80 Blood Pressure Mean: 95 Blood Pressure Source: Automatic Cuff Medical Screen Scoring - Cervical Exam Dilation (cm): 1 Effacement (%): 50 Station: -2 Membranes: Intact - Assessment - Baby A Baseline FHR: 130 Heart Rate - NICHD Category: Category I (Normal) NST: Reactive Physician Notification - Physician Notified Physician Notified Date: 11/07/22 Physician Notified Time: 01:54 Physician: Dr. Anand New Order Received: Yes (Discharge from triage.) Maternal Triage Index - Maternal Triage Index Presenting for scheduled procedure w/no complaint: No - Stat/Priority 1 Stat Priority 1: No - Urgent/Priority 2 Urgent Priority 2: No - Prompt/Priority 3 Prompt Priority 3: No - Non-Urgent/Priority 4 Non-Urgent Priority 4: Yes Criteria Met for Priority 4: RN reported to Dr. Anand on patient and status, contraction pattern, reactive NST, and negative amnisure. Per Dr. Anand patient can come off monitor, and stay on unit r/t being an. scheduled induction the morning at 0600. If patient becomes more painful, RN can replace monitor, recheck patient and start the induction process early. Disposition - Disposition OB Disposition: Discharge to home Discharge Date: 11/07/22 Discharge Time: 02:30 I agree with the RN Medical Screening Exam: Yes Case reviewed; plan agreed upon as documented in EMR&OBIX.: Yes Diagnosis: FALSE LABOR AT OR AFTER 37 COMPLETED WEEKS OF GESTATION
== END 2022-11-07 02:30 | disposition home or self-care (01) ==
LOC: FBPOP 01:15
PROVIDERS: ATTEND Obstetrics & Gynecology
DX: O47.1 False labor at or after 37 completed weeks of gestation (principal); Z3A.40 40 weeks gestation of pregnancy; Z87.891 Personal history of nicotine dependence
CPT/HCPCS: 59025; 84112; 99213

== ENCOUNTER 2022-11-07 05:30 | Inpatient (IN) | payer BC ==
[2022-11-07] MEDS ORDERED: METHYLERGONOVINE 0.2 MG/ML 1 ML AMP IM PRN (06:05)
[2022-11-07] MEDS ORDERED: CARBOPROST TROMETHAMINE 250 MCG/ML 1 ML AMP IM PRN (06:05)
[2022-11-07] MEDS ORDERED: OXYTOCIN 10 UNIT/ML 1 ML VIAL IM PRN (06:05)
[2022-11-07] MEDS ORDERED: miSOPROStoL 200 MCG TAB PO PRN (06:05)
[2022-11-07] MEDS ORDERED: TRANEXAMIC ACID IN NACL,ISO-OS 1,000 MG in EMPTY BAG 1 BAG IV PRN (06:05)
[2022-11-07] MEDS ORDERED: TERBUTALINE 1 MG/ML VIAL SQ PRN (06:05)
[2022-11-07] MEDS ORDERED: LIDOCAINE 0.5% (PF) 5 MG/ML (50 ML SDV) SQ PRN (06:05)
[2022-11-07] MEDS ORDERED: OXYTOCIN 30 UNITS/500 ML NS 30 UNIT in SALINE 1 500ML.BAG IV SCH ×2 (06:15→12:30)
[2022-11-07] MEDS: LACTATED RINGERS 1,000 ML IV SCH ×2 (06:16→08:25)
[2022-11-07 06:42] LABS: Basophils % (A) 0 %; Eosinophils % (A) 1 %; HCT 35.7 % (34.0-46.0); HGB 11.8 gm/dL (11.4-16.0); Lymphocytes % (A) 13 %; MCH 26.2 pg (25.0-35.0); MCHC 32.9 g/dL (31.0-37.0); MCV 79.8 fL (80.0-100.0); Mean Platelet Volume 9.6; Monocytes # (A) 0.5 k/uL (0-1.0); Monocytes % (A) 6 %; Neutrophils # (A) 5.7 k/uL (1.3-7.7); Neutrophils % (A) 78 %; Platelet Count 188 k/uL (150-450); RBC 4.48 m/uL (3.80-5.40); RDW 14.1 % (11.5-15.5); WBC 7.3 k/uL (3.8-10.6)
[2022-11-07] MEDS ORDERED: SODIUM CHLORIDE 0.9% 100 ML BAG ONE (07:49)
[2022-11-07] MEDS ORDERED: ROPIVACAINE 5 MG/ML 20 ML AMPULE ONE (07:49)
[2022-11-07] MEDS ORDERED: fentaNYL (PF) 50 MCG/ML 5 ML AMP ONE (07:49)
[2022-11-07] MEDS ORDERED: ROPIVACAINE 225 MG, fentaNYL (PF). 450 MCG in SODIUM CHLORIDE 0.9% 171 ML EPIDURAL ONE (08:12)
[2022-11-07] MEDS ORDERED: HYDROCORTISONE 2.5% RECTAL CREAM 30 GM TUBE RECTAL PRN (12:17)
[2022-11-07] MEDS ORDERED: SIMETHICONE 80 MG CHEWABLE PO PRN (12:17)
[2022-11-07] MEDS ORDERED: LANOLIN CREAM 5 GM TUBE TOPICAL PRN (12:17)
[2022-11-07] MEDS ORDERED: BENZOCAINE/MENTHOL SPRAY 1 GM/SPRAY AEROSOL TOPICAL PRN (12:17)
[2022-11-07] MEDS ORDERED: diphenhydrAMINE 50 MG/ML 1 ML VIAL IVP PRN ×2 (12:17)
[2022-11-07] MEDS ORDERED: diphenhydrAMINE 25 MG CAP PO PRN (12:17)
[2022-11-07] MEDS ORDERED: ACETAMINOPHEN TAB 325 MG TAB PO PRN (12:17)
[2022-11-07] MEDS ORDERED: diphenhydrAMINE 50 MG CAP PO PRN (12:17)
[2022-11-07] MEDS ORDERED: ZOLPIDEM 5 MG TAB PO PRN (12:17)
--- NOTE | 2022-11-07 12:28 | P.HPOB ---
History of Present Illness H&P Date: 11/07/22 Chief Complaint: Induction of labor 27-year-old presented at 40 weeks and 2 days complaining of contractions and she was scheduled for induction anyway today. Her cervix was 3 cm dilated, 70% effaced, -2 station. She is jaenth irregularly. heart tones 135 with moderate variability and reactive. Review of Systems All systems: negative Constitutional: Denies chills, Denies fever Eyes: denies blurred vision, denies pain Ears, nose, mouth and throat: Denies headache, Denies sore throat Cardiovascular: Denies chest pain, Denies shortness of breath Respiratory: Denies cough Gastrointestinal: Denies abdominal pain, Denies diarrhea, Denies nausea, Denies vomiting Genitourinary: Denies dysuria, Denies hematuria Musculoskeletal: Denies myalgias Integumentary: Denies pruritus, Denies rash Neurological: Denies numbness, Denies weakness Psychiatric: Denies anxiety, Denies depression Endocrine: Denies fatigue, Denies weight change Past Medical History Past Medical History: No Reported History Additional Past Medical History / Comment(s): Obstetric history: First two pregnancies were spontaneous abortions. Her 3rd and 4th were a vaginal deliveries. She has had care with id. A+, abs neg, Rub Imm, RPR NR, Hep B neg, HIV NR. normal 1hr GTT. GBS neg History of Any Multi-Drug Resistant Organisms: None Reported Past Surgical History: No Surgical Hx Reported Past Anesthesia/Blood Transfusion Reactions: No Reported Reaction Past Psychological History: No Psychological Hx Reported Additional Psychological History / Comment(s): Does not take medications Smoking Status: Never smoker Past Alcohol Use History: None Reported Past Drug Use History: None Reported - Past Family History Mother Family Medical History: Diabetes Mellitus, Hypertension Medications and Allergies Allergies Allergy/AdvReac Type Severity Reaction Status Date / Time No Known Allergies Allergy Verified 11/07/22 02:13 Exam Osteopathic Statement: *. No significant issues noted on an osteopathic structural exam other than those noted in the History and Physical/Consult. Vital Signs Temp Pulse Resp BP Pulse Ox 11/07/22 12:11 99.1 F 99 16 124/59 98 11/07/22 05:39 96.9 F L 82 18 136/85 Intake and Output 11/06/22 11/07/22 11/07/22 22:59 06:59 14:59 Intake Total 61.433 Balance 61.433 Intake: Intake, IV Titration 11.433 Amount Oxytocin 30 Units/500 ml 11.433 Ns 30 unit In Saline 1 500ml.bag @ Per Protocol IV .Q0M QUIN Rx#:[id number] Oral 50 Other: # Voids 1 # Bowel Movements 1 Weight 113.398 kg Heart: Regular rate and rhythm Lungs: Clear to auscultation bilaterally Abdomen: Soft, nontender Extremities: Negative Homans sign Results Result Diagrams: 11/07/22 06:15 Abnormal Lab Results - Last 24 Hours (Table) 11/07/22 Range/Units 06:15 MCV 79.8 L (80.0-100.0) fL Assessment and Plan (1) Normal labor Current Visit: No Status: Resolved Code(s): O80 - ENCOUNTER FOR FULL-TERM UNCOMPLICATED DELIVERY; Z37.9 - OUTCOME OF DELIVERY, UNSPECIFIED SNOMED Code(s): 83215517 Plan: 1. Admit to family place 2. Amniotomy and Pitocin augmentation 3. Anticipate normal vaginal delivery
--- NOTE | 2022-11-07 12:30 | P.PROBDLV ---
Vaginal Delivery Note - . Vaginal Delivery Note: 27-year-old presented at 40 weeks and 2 days complaining of contractions and she was scheduled for induction anyway today. Her cervix was 3 cm dilated, 70% effaced, -2 station. She is janeht irregularly. heart tones 135 with moderate variability and reactive. Amniotomy performed at 6:14 AM clear fluid noted. Pitocin augmentation was also started. When she was uncomfortable she did get an epidural. When she was completely dilated, she pushed and delivered a viable female infant over intact perineum under epidural anesthesia at 12:01 PM. Head delivered OA, anterior shoulder delivered gentle downward guidance for by posterior shoulder and rest of body. Nose and mouth bulb suctioned, cord clamped and cut, infant placed mother's abdomen. Apgars 9, 9, weight 8 lbs. 10 oz. Placenta delivered spontaneously, intact with three-vessel cord at 12:03 PM. Vagina, cervix, perineum inspected. No lacerations noted. Estimated blood loss 100 mL. Mother and baby in stable condition.
[2022-11-07 13:25] VITALS: RESP 16
[2022-11-07] MEDS ORDERED: SENNOSIDES-DOCUSATE SODIUM 1 EACH TAB PO SCH (20:00)
[2022-11-07] MEDS: IBUPROFEN 600 MG TAB PO PRN (20:25)
[2022-11-08] MEDS: LACTATED RINGERS 1,000 ML IV SCH (02:19)
[2022-11-08] MEDS: IBUPROFEN 600 MG TAB PO PRN (03:55)
[2022-11-08 07:54] LABS: Basophils % (A) 0 %; Eosinophils # (A) 0.1 k/uL (0-0.7); Eosinophils % (A) 1 %; HCT 32.3 % (34.0-46.0); HGB 10.7 gm/dL (11.4-16.0); Lymphocytes % (A) 15 %; MCH 26.3 pg (25.0-35.0); MCHC 33.2 g/dL (31.0-37.0); MCV 79.3 fL (80.0-100.0); Mean Platelet Volume 10.6; Monocytes # (A) 0.4 k/uL (0-1.0); Monocytes % (A) 6 %; Neutrophils # (A) 4.9 k/uL (1.3-7.7); Neutrophils % (A) 75 %; Platelet Count 130 k/uL (150-450); RBC 4.08 m/uL (3.80-5.40); RDW 14.6 % (11.5-15.5); WBC 6.5 k/uL (3.8-10.6)
[2022-11-08 08:40] VITALS: BP 120/79; PULSE 82; TEMP 98.1
--- NOTE | 2022-11-08 08:41 | P.DS ---
Providers Date of admission: 11/07/22 05:30 Expected date of discharge: 11/08/22 Attending physician: Mary Max Primary care physician: Stated None - Discharge Diagnosis(es) (1) Normal labor Current Visit: No Status: Resolved (2) Normal vaginal delivery Current Visit: No Status: Acute Hospital Course: Patient presented for induction of labor. She underwent a normal vaginal delivery. course was uneventful. She denies nausea, vomiting, chest pain, shortness of breath or calf pain. Patient will be discharged home day #1 in stable condition to follow-up with me in 6 weeks. Plan - Discharge Summary Follow up Appointment(s)/Referral(s): Mary Max DO [Doctor of Osteopathic Medicine] - 12/17/22 3:45 pm Discharge Disposition: HOME SELF-CARE
== END 2022-11-08 14:50 | disposition home or self-care (01) | DRG 807 ==
LOC: 4FBP 05:30
PROVIDERS: ADMIT Obstetrics & Gynecology; ATTEND Obstetrics & Gynecology
PROC: 10E0XZZ Delivery of Products of Conception, External Approach (ICD-10-PCS; principal; 2022-11-07)
PROC: 3E033VJ Introduction of Other Hormone into Peripheral Vein, Percutaneous Approach (ICD-10-PCS; 2022-11-07)
PROC: 10907ZC Drainage of Amniotic Fluid, Therapeutic from Products of Conception, Via Natural or Artificial Opening (ICD-10-PCS; 2022-11-07)
DX: O48.0 Post-term pregnancy (principal); Z37.0 Single live birth; Z3A.40 40 weeks gestation of pregnancy
CPT/HCPCS: 85025; 86850; 86900; 86901

== ENCOUNTER 2023-01-28 06:13 | Day surgery (SDC) | payer BC ==
--- NOTE | 2023-01-27 11:34 | P.HPOB ---
History of Present Illness H&P Date: 01/27/23 Chief Complaint: family planning 27 year old presents for laparoscopic tubal ligation. Review of Systems All systems: negative Constitutional: Denies chills, Denies fever Eyes: denies blurred vision, denies pain Ears, nose, mouth and throat: Denies headache, Denies sore throat Cardiovascular: Denies chest pain, Denies shortness of breath Respiratory: Denies cough Gastrointestinal: Denies abdominal pain, Denies diarrhea, Denies nausea, Denies vomiting Genitourinary: Denies dysuria, Denies hematuria Musculoskeletal: Denies myalgias Integumentary: Denies pruritus, Denies rash Neurological: Denies numbness, Denies weakness Psychiatric: Denies anxiety, Denies depression Endocrine: Denies fatigue, Denies weight change Past Medical History Past Medical History: No Reported History History of Any Multi-Drug Resistant Organisms: None Reported Past Surgical History: No Surgical Hx Reported Past Anesthesia/Blood Transfusion Reactions: No Reported Reaction Additional Past Anesthesia/Blood Transfusion Reaction / Comment(s): never had surgery Smoking Status: Former smoker - Past Family History Mother Family Medical History: Diabetes Mellitus, Hypertension Medications and Allergies Home Medications Medication Instructions Recorded Confirmed Type No Known Home Medications 01/23/23 01/23/23 History Allergies Allergy/AdvReac Type Severity Reaction Status Date / Time No Known Allergies Allergy Verified 01/23/23 11:12 Exam Osteopathic Statement: *. No significant issues noted on an osteopathic structural exam other than those noted in the History and Physical/Consult. HEart: RRR Lungs: CTAB Abdomen: soft, nontender Extremeties: neg isabell's Assessment and Plan (1) Family planning Status: Acute Code(s): Z30.09 - ENCOUNTER FOR OTH GENERAL CNSL AND ADVICE ON CONTRACEPTION SNOMED Code(s): 751860080 Plan: 1. laparoscopic tubal ligation
[~2023-01-28 06:13] MED LIST: DEXAMETHASONE SOD PHOSPHATE 4 MG/ML 1 ML VIAL IV ONE; LACTATED RINGERS 1,000 ML IV SCH; MIDAZOLAM 2 MG/2 ML VIAL IV PRN; ONDANSETRON 4 MG/2 ML VIAL IVP ONE; Pre Op ABX Message 1 EACH MISC MISCELLANE ONE; SCOPOLAMINE 1 MG/72 HR PATCH TRANSDERM ONE
[2023-01-28] MEDS ORDERED: HYDROmorphone 0.5 MG/0.5 ML SYRINGE IVP PRN (07:00)
[2023-01-28] MEDS ORDERED: MIDAZOLAM 2 MG/2 ML VIAL ONE (07:24)
[2023-01-28] MEDS ORDERED: GLYCOPYRROLATE 0.2 MG/ML 2 ML VIAL ONE (07:24)
[2023-01-28] MEDS ORDERED: KETOROLAC 15 MG/ML 1 ML VIAL ONE (07:24)
[2023-01-28] MEDS ORDERED: PROPOFOL 10 MG/ML 20 ML VIAL IV ONE (07:24)
[2023-01-28] MEDS ORDERED: LIDOCAINE 2% INJ 20 MG/ML (2 ML VIAL) ONE (07:24)
[2023-01-28] MEDS ORDERED: ROCURONIUM 10 MG/ML (5 ML VIAL) IV ONE (07:24)
[2023-01-28] MEDS ORDERED: NEOSTIGMINE 1 MG/ML 10 ML VIAL ONE (07:24)
[2023-01-28] MEDS ORDERED: fentaNYL (PF) 50 MCG/ML 2 ML AMP ONE (07:24)
[2023-01-28] MEDS ORDERED: SUCCINYLCHOLINE CHLORIDE 200 MG/10 ML VIAL IV ONE (07:24)
[2023-01-28] MEDS ORDERED: BUPIVACAINE (PF) 0.25% 30 ML VIAL SQ ONE ×2 (07:48)
[2023-01-28] MEDS ORDERED: ONDANSETRON 4 MG/2 ML VIAL IVP ONE (08:32)
[2023-01-28 08:38] VITALS: TEMP 97.3
--- NOTE | 2023-01-28 08:38 | P.OP ---
Date of Procedure: 01/28/23 Preoperative Diagnosis: 1. family planning Postoperative Diagnosis: 1. family planning Procedure(s) Performed: Laparoscopic tubal ligation Anesthesia: FLOYD Surgeon: Mary Max Estimated Blood Loss (ml): 5 IV fluids (ml): 400 Urine output (ml): 50 Pathology: none sent Condition: stable Disposition: PACU Description of Procedure: Patient was taken to the operating room where general anesthesia was obtained without difficulty. She was prepped and draped in normal sterile fashion in the dorsal lithotomy position, legs placed in the [place] stirrups. Bladder drained of all urine. [place] speculum placed in the vagina and the anterior lip the cervix was grasped with single-tooth tenaculum. The uterus is sounded to 9 cm and the kroner manipulator was placed. Attention was then turned to the abdomen and gloves were changed. A 10 mm infraumbilical incision was made the scalpel and 10 mm optical trocar was placed under direct visualization. A 5 mm suprapubic Incision was made and a 5 mm optical trocar was placed under direct visualization. Survey of the pelvis revealed normal uterus tubes and ovaries. The left fallopian tube was grasped with a Kleppinger and tender to be fulgurated. The Kleppinger was not burning. Troubleshooting the Kleppinger did not work so I changed the instrument for a 5 mm LigaSure. The left fallopian tube was grasped with the 5 mm LigaSure and fulgurated 2-3 cm on this side in the ampullar portion. The right fallopian tube was grasped with a LigaSure and fulgurated 2-3 cm in the ampullar portion. All instruments were then removed from the abdomen and vagina. The 10 mm infraumbilical incision was closed with 0 Vicryl and the fascial layer and then 4-0 Vicryl in a subcuticular fashion. The 5 mm incision was closed with 4-0 Vicryl in a subcuticular fashion. Patient tolerated procedure well, sponge and instrument counts correct 2 and she was taken to recovery room in stable condition.
[2023-01-28 09:22] VITALS: BP 123/75; PULSE 56; RESP 18
== END 2023-01-28 09:56 | disposition home or self-care (01) ==
LOC: OR 06:13
PROVIDERS: ATTEND Obstetrics & Gynecology
DX: Z30.2 Encounter for sterilization (principal); Z87.891 Personal history of nicotine dependence; Z83.3 Family history of diabetes mellitus; Z82.49 Family history of ischemic heart disease and other diseases of the circulatory system
CPT/HCPCS: 81025; 58670; J2250; J0330; J1100; J2710; J2405; J3010; J1885; J2704; J2001; J0665